=== PATIENT | female | born 1960 | race Two or more races ===

== ENCOUNTER 2023-10-23 15:13 | Emergency (ER) | payer OTHER ==
[~2023-10-23] VITALS: Ht 157.5 cm; Wt 58.1 kg
[2023-10-23] MEDS ORDERED: METFORMIN HCL500 MG PO (16:11)
[2023-10-23] MEDS ORDERED: CRESTOR10 MG PO (16:12)
[2023-10-23] MEDS ORDERED: DICLOFENAC SODI75 MG PO (21:46)
[2023-10-23] MEDS ORDERED: DICLOFENAC SOD100 GM TOP (21:46)
== END 2023-10-23 22:09 | disposition home or self-care (01) ==
LOC: ER 15:13
DX: S59.811A Other specified injuries right forearm, initial encounter (principal); W01.0XXA Fall on same level from slipping, tripping and stumbling without subsequent striking against object, initial encounter; Y93.89 Activity, other specified; Y92.413 State road as the place of occurrence of the external cause; S49.81XA Other specified injuries of right shoulder and upper arm, initial encounter

== ENCOUNTER 2023-11-25 22:02 | Emergency (ER) | payer OTHER ==
[~2023-11-25] VITALS: Ht 157.5 cm; Wt 59.0 kg
[~2023-11-25 22:02] MED LIST: CRESTOR10 MG PO; DICLOFENAC SOD100 GM TOP; DICLOFENAC SODI75 MG PO; METFORMIN HCL500 MG PO
== END 2023-11-26 03:44 ==
LOC: ER 22:03
DX: S09.8XXA Other specified injuries of head, initial encounter (principal); X58.XXXA Exposure to other specified factors, initial encounter; Y93.89 Activity, other specified; Y92.89 Other specified places as the place of occurrence of the external cause; Z79.84 Long term (current) use of oral hypoglycemic drugs; E11.9 Type 2 diabetes mellitus without complications; Y99.8 Other external cause status

== ENCOUNTER 2023-12-27 12:07 | Emergency (ER) | payer OTHER ==
[~2023-12-27] VITALS: Ht 154.9 cm; Wt 59.0 kg
[2023-12-27] MEDS ORDERED: PROMETHAZINE HCL 25 MG/ML AMPUL IM ONE (13:15)
[2023-12-27] MEDS ORDERED: MEPERIDINE HCL/PF 50 MG/ML VIAL IM ONE (13:15)
[2023-12-27] MEDS ORDERED: 0.9 % SODIUM CHLORIDE 1,000 ML IV ONE (13:15)
[2023-12-27 13:47] LABS: PH,URINE 6.5 (5.0-8.0); URINE APPEARANCE Turbid; URINE BILIRRUBIN Negative (NEGATIVE); URINE BLOOD Small; URINE COLOR Dark Yellow; URINE GLUCOSE Negative (NEGATIVE); URINE LEUKOCYTE Large; URINE NITRATE Positive; URINE PROTEIN Negative (NEGATIVE)
[2023-12-27 13:48] LABS: HEMATOCRIT 40.3 % (36.0-45.00); HEMOGLOBIN 13.4 g/dL (12.0-15.00); MEAN CELL VOLUME 84.7 fL (80.00-100.00); MEAN CORPUSCULAR HEMOGLOBIN 28.2 pg (27.00-32.0); MEAN CORPUSCULAR HGB CONC 33.3 g/dl (32.0-36.0); PLATELET COUNT 224 K/uL (150-450); RED BLOOD COUNT 4.75 M/uL (4.00-6.00); RED CELL DISTRIBUTION WIDTH 13.9 % (11.5-14.5)
[2023-12-27 13:50] LABS: URINE EPITHELIAL CELLS 10.8 uL (0.0-38.8); URINE RBC 10.9 uL (0.0-20.8); URINE WBC 1042.5 uL (0.0-23.2)
[2023-12-27 14:06] LABS: ALBUMIN 3.7 gm/dL (3.4-5.0); BILIRUBIN TOTAL 0.33 mg/dL (0.3-1.2); CALCIUM 9.1 mg/dL (8.5-10.1); CREATININE SERUM 0.89 mg/dL (0.55-1.02); GFR 63.65; GLOBULINA 3.7 G/DL (2.4-3.5); POTASSIUM 4.03 mEq/L (3.5-5.1); TOTAL PROTEIN 7.4 gm/dL (6.4-8.2)
[2023-12-27 14:14] LABS: URINE BACTERIA > 9821.5 uL (0.0-1933)
[2023-12-27] MEDS ORDERED: CIPROFLOXACIN IN 5 % DEXTROSE 400 MG/200 ML PIGGYBAG IV ONE (15:00)
[2023-12-27] MEDS ORDERED: ACETAMINOPHEN WITH CODEINE 1 UDTAB TABLET PO ONE (19:15)
== END 2023-12-27 20:49 | disposition home or self-care (01) ==
LOC: ER 12:07
PROVIDERS: General Practice
DX: K52.9 Noninfective gastroenteritis and colitis, unspecified (principal); N39.0 Urinary tract infection, site not specified; R10.2 Pelvic and perineal pain; E11.9 Type 2 diabetes mellitus without complications; Z79.84 Long term (current) use of oral hypoglycemic drugs

== ENCOUNTER 2023-12-29 12:15 | Emergency (ER) | payer OTHER ==
[~2023-12-29] VITALS: Ht 154.9 cm; Wt 59.0 kg
[2023-12-29] MEDS ORDERED: 0.9 % SODIUM CHLORIDE 1,000 ML IV SCH (14:00)
[2023-12-29] MEDS ORDERED: KETOROLAC TROMETHAMINE 30 MG VIAL IV ONE (14:30)
[2023-12-29 14:34] LABS: HEMATOCRIT 40.5 % (36.0-45.00); HEMOGLOBIN 13.6 g/dL (12.0-15.00); MEAN CELL VOLUME 84.7 fL (80.00-100.00); MEAN CORPUSCULAR HEMOGLOBIN 28.5 pg (27.00-32.0); MEAN CORPUSCULAR HGB CONC 33.6 g/dl (32.0-36.0); PLATELET COUNT 219 K/uL (150-450); RED BLOOD COUNT 4.79 M/uL (4.00-6.00); RED CELL DISTRIBUTION WIDTH 14.4 % (11.5-14.5)
[2023-12-29 14:56] LABS: URINE APPEARANCE Clear; URINE BILIRRUBIN Negative (NEGATIVE); URINE BLOOD Negative; URINE COLOR Yellow; URINE GLUCOSE Negative (NEGATIVE); URINE LEUKOCYTE Large; URINE NITRATE Negative; URINE PROTEIN Negative (NEGATIVE); URINE UROBILINOGEN 0.2 E.U./dl
[2023-12-29 14:58] LABS: URINE EPITHELIAL CELLS 8.8 uL (0.0-38.8); URINE RBC 2.7 uL (0.0-20.8); URINE WBC 184.1 uL (0.0-23.2)
[2023-12-29 15:09] LABS: ALBUMIN 3.8 gm/dL (3.4-5.0); BILIRUBIN TOTAL 0.53 mg/dL (0.3-1.2); CALCIUM 9.9 mg/dL (8.5-10.1); CREATININE SERUM 0.76 mg/dL (0.55-1.02); GFR 76.37; GLOBULINA 3.6 G/DL (2.4-3.5); POTASSIUM 4.06 mEq/L (3.5-5.1); TOTAL PROTEIN 7.4 gm/dL (6.4-8.2)
[2023-12-29 15:10] LABS: URINE BACTERIA > 9821.5 uL (0.0-1933)
== END 2023-12-29 17:07 | disposition home or self-care (01) ==
LOC: ER 12:15
PROVIDERS: General Practice
DX: N39.0 Urinary tract infection, site not specified (principal); R33.8 Other retention of urine; B96.29 Other Escherichia coli [E. coli] as the cause of diseases classified elsewhere; Z16.39 Resistance to other specified antimicrobial drug